=== PATIENT | female | born 1965 | race Caucasian/White ===

== ENCOUNTER 2016-09-02 10:52 | Emergency (ER) | payer BC, OTHER ==
[2016-09-02 11:37] VITALS: BP 148/71
--- NOTE | 2016-09-02 14:44 | UC ---
FLU HPI - HPI Summary HPI Summary: COUGH CHILLS SINUS PRESSURE, SINCE YESTERDAY. NO FEVER. HAS TONSILLECTOMY. - History of Current Complaint Chief Complaint: UCRespiratory Stated Complaint: COUGH SOB CHEST HEAVINESS Time Seen by Provider: 09/02/16 12:08 Hx Obtained From: Patient Hx Last Menstrual Period: 4 months ago Onset/Duration: Sudden Onset, Lasting Days, Still Present Severity Currently: Mild Severity Initially: Mild Pain Intensity: 2 Pain Scale Used: 0-10 Numeric Associated Signs & Symptoms: Positive: F/C, Myalgia, Sore Throat, Nasal Congestion Related Hx: Possible Flu/Infectious Exposure - Risk Factors Influenza Risk Factors: Negative - Allergy/Home Medications Allergies/Adverse Reactions: Allergies Allergy/AdvReac Type Severity Reaction Status Date / Time No Known Allergies Allergy Verified 11/10/14 15:44 PMH/Surg Hx/FS Hx/Imm Hx Previously Healthy: Yes Endocrine History Of: Denies: Diabetes, Thyroid Disease Cardiovascular History Of: Reports: Hypertension Denies: Cardiac Disorders Respiratory History Of: Reports: Asthma Denies: COPD GI/ History Of: Denies: Ulcer - Surgical History Surgical History: Yes Surgery Procedure, Year, and Place: tonsillectomy- 1972. arthroscopic right knee surgery - 1979 - Family History Known Family History: Positive: Respiratory Disease - ASTHMA - Social History Occupation: Employed Full-time Lives: With Family Alcohol Use: Occasionally Substance Use Type: None Smoking Status (MU): Never Smoked Tobacco - Immunization History Most Recent Pneumonia Vaccination: 07/2016 Review of Systems Constitutional: Fever, Chills, Fatigue Skin: Negative Eyes: Negative ENT: Ear Ache, Nasal Discharge Respiratory: Cough Cardiovascular: Negative Gastrointestinal: Negative Genitourinary: Negative Motor: Negative Neurovascular: Negative Musculoskeletal: Negative Neurological: Negative Psychological: Negative All Other Systems Reviewed And Are Negative: Yes Physical Exam Triage Information Reviewed: Yes Appearance: Well-Appearing, No Pain Distress, Well-Nourished Vital Signs: Initial Vital Signs Temp 98.9 F 09/02/16 11:31 Pulse 82 09/02/16 11:31 Resp 18 09/02/16 11:31 BP 148/71 09/02/16 11:31 Pulse Ox 99 09/02/16 11:31 Vital Signs Reviewed: Yes Eye Exam: Normal ENT: Positive: Normal ENT inspection, Hearing grossly normal, Pharynx normal, Nasal congestion, TM dull, TM red Dental Exam: Normal Neck exam: Normal Neck: Positive: Supple, Nontender, No Lymphadenopathy Respiratory Exam: Normal Respiratory: Positive: Chest non-tender, Lungs clear, Normal breath sounds, No respiratory distress, No accessory muscle use Cardiovascular Exam: Normal Cardiovascular: Positive: RRR, No Murmur, Pulses Normal Abdominal Exam: Normal Abdomen Description: Positive: Nontender, No Organomegaly Musculoskeletal Exam: Normal Musculoskeletal: Positive: Strength Intact, ROM Intact Neurological Exam: Normal Psychological Exam: Normal Psychological: Positive: Normal Response To Family Skin Exam: Normal Flu Course/Dx - Differential Dx/Diagnosis Differential Diagnosis/HQI/PQRI: Influenza, Upper Respiratory Infection Provider Diagnoses: INFLUENZA Discharge - Discharge Plan Condition: Stable Disposition: HOME Prescriptions: Oseltamivir CAP* [Tamiflu CAP*] 75 mg PO BID #10 cap Patient Education Materials: Influenza (ED) Forms: *Work Release Referrals: Kamari Gregory MD [Primary Care Provider] -
== END 2016-09-02 13:16 | disposition home or self-care (01) ==
LOC: UCEAST 10:52
DX: J11.1 Influenza due to unidentified influenza virus with other respiratory manifestations (principal)
CPT/HCPCS: 87502; 87651; 99212; G0463

== ENCOUNTER 2016-09-10 18:57 | Emergency (ER) | payer BC ==
[2016-09-10 19:12] VITALS: BP 149/67
--- NOTE | 2016-09-10 19:23 | UC ---
Lower Extremity/Ankle HPI - HPI Summary HPI Summary: left foot swollen and painful - History of Current Complaint Chief Complaint: UCLowerExtremity Stated Complaint: LT FOOT SWOLLEN/NUMB Time Seen by Provider: 09/10/16 19:16 Hx Obtained From: Patient Hx Last Menstrual Period: 4 months ago ?: No Onset/Duration: Sudden Onset, Lasting Days, Still Present Severity Initially: Moderate Severity Currently: Moderate Pain Intensity: 6 Pain Scale Used: 0-10 Numeric Aggravating Factor(s): Standing, Ambulation Alleviating Factor(s): Rest, Elevation, OTC Meds Able to Bear Weight: Yes - Allergies/Home Medications Allergies/Adverse Reactions: Allergies Allergy/AdvReac Type Severity Reaction Status Date / Time No Known Allergies Allergy Verified 09/10/16 19:12 PMH/Surg Hx/FS Hx/Imm Hx Previously Healthy: No Endocrine History Of: Denies: Diabetes, Thyroid Disease Cardiovascular History Of: Reports: Hypertension Denies: Cardiac Disorders Respiratory History Of: Reports: Asthma Denies: COPD GI/ History Of: Denies: Ulcer - Surgical History Surgical History: Yes Surgery Procedure, Year, and Place: tonsillectomy- 1972. arthroscopic right knee surgery - 1979. 2000 - Family History Known Family History: Positive: Respiratory Disease - ASTHMA - Social History Occupation: Employed Full-time - [employer] Therapist At [employer] Lives: With Family Alcohol Use: Occasionally Substance Use Type: None Smoking Status (MU): Never Smoked Tobacco - Immunization History Most Recent Pneumonia Vaccination: 07/2016 Review of Systems Constitutional: Negative Skin: Negative Eyes: Negative ENT: Negative Respiratory: Negative Cardiovascular: Negative Gastrointestinal: Negative Genitourinary: Negative Motor: Negative Neurovascular: Negative Musculoskeletal: Negative, Arthralgia - left foot, Edema - 1/4 inch greater around than right foot Neurological: Negative Psychological: Negative All Other Systems Reviewed And Are Negative: Yes Physical Exam Triage Information Reviewed: Yes Appearance: Well-Appearing, No Pain Distress, Well-Nourished Vital Signs: Initial Vital Signs Temp 98.2 F 09/10/16 19:08 Pulse 84 09/10/16 19:08 Resp 16 09/10/16 19:08 BP 149/67 09/10/16 19:08 Pulse Ox 97 09/10/16 19:08 Vital Signs Reviewed: Yes Eye Exam: Normal Eyes: Positive: Conjunctiva Clear ENT Exam: Normal ENT: Positive: Normal ENT inspection, Hearing grossly normal. Negative: Nasal congestion, Nasal drainage, Trismus, Muffled/hoarse voice Dental Exam: Normal Neck exam: Normal Neck: Positive: Supple, Nontender Respiratory Exam: Normal Respiratory: Positive: Chest non-tender, Lungs clear, Normal breath sounds, No respiratory distress, No accessory muscle use Cardiovascular Exam: Normal Cardiovascular: Positive: RRR, Pulses Normal, Brisk Capillary Refill Musculoskeletal Exam: Normal Musculoskeletal: Positive: Strength Intact, ROM Intact, Edema @ - left foot Neurological Exam: Normal Neurological: Positive: Alert, Muscle Tone Normal Psychological Exam: Normal Skin Exam: Normal Diagnostics - Radiology No standard instances Xray Interpretation: No Acute Changes Radiology Interpretation Completed By: Radiologist Re-Evaluation - Re-Evaluation Second Eval Change: Improved - increase comfort with cam boot Lower Extremity Course/Dx - Course Course Of Treatment: immobilize foot, rice ibuprofen rest follow with orthopedic md this week - Differential Dx/Diagnosis Differential Diagnosis/HQI/PQRI: Bursitis, Cellulitis, Contusion, Fracture ( Closed), Sprain, Strain Provider Diagnoses: Left foot pain, hypertension with diagnosis and treatment Discharge - Discharge Plan Condition: Stable Disposition: HOME Patient Education Materials: Ibuprofen (By mouth), Arthralgia (ED), RICE Therapy (ED), Arthritis (ED) Forms: *Work Release Referrals: Kamari Gregory MD [Primary Care Provider] - Shira Whitman MD [Medical Doctor] - 4 Days
--- NOTE | 2016-09-10 19:50 | RAD ---
HISTORY: Left fourth and fifth metatarsal pain and swelling COMPARISONS: None VIEWS: 3, Frontal, lateral, and oblique views of the left foot FINDINGS: BONE DENSITY: Normal. BONES: There is no displaced fracture. There are calcaneal enthesophytes. There is no appreciable erosion or periosteal reaction. JOINTS: There is mild osteoarthritis of the midfoot ALIGNMENT: There is no dislocation. SOFT TISSUES: Unremarkable. OTHER FINDINGS: None. IMPRESSION: NO ACUTE OSSEOUS INJURY. APPRECIABLE EROSION OR PERIOSTEAL REACTION. IF SYMPTOMS PERSIST, RECOMMEND REPEAT IMAGING.
== END 2016-09-10 20:25 | disposition home or self-care (01) ==
LOC: UCEAST 18:57
DX: M25.572 Pain in left ankle and joints of left foot (principal); I10 Essential (primary) hypertension; J45.909 Unspecified asthma, uncomplicated
CPT/HCPCS: 99212; G0463

== ENCOUNTER 2017-02-04 13:05 | Emergency (ER) | payer BC ==
[2017-02-04] MEDS ORDERED: Ketorolac INJ* 60 MG/2 ML VIAL IM ONE (14:55)
[2017-02-04 16:08] VITALS: BP 136/74
--- NOTE | 2017-02-04 16:19 | RAD ---
CLINICAL HISTORY: Back pain, dysuria, hematuria COMPARISON: None TECHNIQUE: Multiple contiguous axial CT scans were obtained of the abdomen and pelvis, without intravenous contrast enhancement. Coronal and sagittal multiplanar reformations are submitted for review. Oral contrast was not administered. FINDINGS: The study is limited by the lack of intravenous contrast. This limits evaluation of the solid organs and vasculature. LUNG BASES: The lung bases are clear. LIVER: The liver is normal in shape, size, contour, and attenuation. BILE DUCTS: There is no intrahepatic or extrahepatic biliary dilatation. GALLBLADDER: The gallbladder is normal, without pericholecystic inflammatory change. PANCREAS: The pancreas is normal, without mass or ductal dilatation. SPLEEN: Normal in size and appearance. UPPER GI TRACT: Evaluation of the gastrointestinal tract is limited by incomplete gastric distention. The upper GI tract is unremarkable. SMALL BOWEL AND MESENTERY: The small bowel is normal in contour, course, and caliber. There is no obstruction or dilatation. COLON: The colon is normal in contour, course, caliber. There is no pericolonic inflammatory change. There is a tubular, vermiform, hollow viscus that is blind ending, and originates from the cecum, consistent with a normal appendix. There is no periappendiceal inflammatory change. ADRENALS: Normal bilaterally. KIDNEYS: There are punctate renal calyceal stones bilaterally measuring up to 0.2 cm in size. There are no appreciable ureteral stones. There is no hydronephrosis. BLADDER: The bladder is incompletely distended but is grossly normal. PELVIC ORGANS: The uterus and adnexa are grossly normal for technique. AORTA: The aorta is normal. IVC: Unremarkable LYMPH NODES: There is no lymphadenopathy by size criteria. ABDOMINAL WALL: There is no evidence for abdominal wall hernia. BONES AND SOFT TISSUES: Degenerative changes are noted OTHER: None IMPRESSION: PUNCTATE NONOBSTRUCTING RENAL CALYCEAL STONES BILATERALLY.
--- NOTE | 2017-02-12 13:46 | UC ---
Ashley Myers Edward, scribed for Kelly Seth DO on 02/04/17 at 1447 . Back Pain HPI - HPI Summary HPI Summary: 51 y/o female presents to [facility] c/o diffuse lower back pain starting three days ago. Three days ago the pt turned with her shoelace stuck in the door quickly. Later when she went to sit down in her car she felt like she "sat on a nerve." The pain started soon after these incidents. The pain is aggravated when the pt bends over and mildly aggravated when she straightens back up and sits down for too long. It is described as a spasmodic/stabbing pain rated at 4.5/10 in severity now, 7/10 this morning. Denies numbness/tingling, weakness and the pain does not radiate into her legs. Associated sx: nausea. PMHx bulging disc secondary to work-related back injury (20 years ago), HTN, asthma, plantar fasciitis. Past medications reviewed on visit. - History of Current Complaint Chief Complaint: UCBackPain Stated Complaint: BACK PAIN Time Seen by Provider: 02/04/17 14:43 Hx Obtained From: Patient Hx Last Menstrual Period: 4 months ago ?: No Onset/Duration: Lasting Days, Still Present Timing: Constant Severity Currently: Moderate Pain Intensity: 4 Pain Scale Used: 0-10 Numeric Back Pain: Is Diffuse - Lower back Character: Sharp - Stabbing and pulling, Spasmodic Aggravating: Bending - and sitting Associated Signs And Symptoms: Positive: Other - Nausea. Negative: Weakness, Numbness, Tingling - Allergies/Home Medications Allergies/Adverse Reactions: Allergies Allergy/AdvReac Type Severity Reaction Status Date / Time No Known Allergies Allergy Verified 02/04/17 13:44 Home Medications: Home Medications Folic Acid TAB* [Folvite TAB*] 02/04/17 [History] sulfaSALAzine TAB* [Azulfidine TAB*] 1,000 mg PO BID 02/04/17 [History Confirmed 02/04/17] PMH/Surg Hx/FS Hx/Imm Hx - Additional Past Medical History Additional PMH: Positive: plantar fasciitis Previously Healthy: No Cardiovascular History: Hypertension Respiratory History: Asthma - Surgical History Surgical History: Yes Surgery Procedure, Year, and Place: tonsillectomy- 1972. arthroscopic right knee surgery - 1979. 2000 - Family History Known Family History: Positive: Cardiac Disease, Hypertension, Diabetes - Social History Occupation: Employed Full-time Lives: Alone Alcohol Use: Occasionally Substance Use Type: None Smoking Status (MU): Never Smoked Tobacco - Immunization History Most Recent Pneumonia Vaccination: 07/2016 Review of Systems Constitutional: Negative Skin: Negative Eyes: Negative ENT: Negative Respiratory: Negative Cardiovascular: Negative Gastrointestinal: Nausea Genitourinary: Negative Motor: Negative Neurovascular: Negative Musculoskeletal: Myalgia - Lower back pain Neurological: Negative Psychological: Negative All Other Systems Reviewed And Are Negative: Yes Physical Exam Triage Information Reviewed: Yes Appearance: Well-Appearing, Well-Nourished, Pain Distress - Mild Vital Signs: Initial Vital Signs Temp 98.9 F 02/04/17 13:39 Pulse 90 02/04/17 13:39 Resp 16 02/04/17 13:39 BP 142/77 02/04/17 13:39 Pulse Ox 98 02/04/17 13:39 Vital Signs Reviewed: Yes Eyes: Positive: Conjunctiva Clear. Negative: Discharge ENT: Positive: Hearing grossly normal. Negative: Muffled/hoarse voice Neck exam: Normal Neck: Positive: Supple Respiratory: Positive: Lungs clear, Normal breath sounds, No respiratory distress, No accessory muscle use Cardiovascular: Positive: RRR, No Murmur Abdomen Description: Positive: Nontender, Soft. Negative: CVA Tenderness (R), CVA Tenderness (L), Distended, Guarding, McBurney's Point Tenderness Bowel Sounds: Positive: Present Musculoskeletal: Positive: Strength Intact - Strength, sensation and reflexes intact bilaterally, ROM Limited @ - ROM restricted with rotation - R greater than L and with inflection from a seated position, Other: - TTP overl bialteral SI joint and at the L5-S1 junction Neurological Exam: Normal Neurological: Positive: Muscle Tone Normal Psychological Exam: Normal Psychological: Positive: Age Appropriate Behavior Skin Exam: Normal, Other - Warm, dry, normal color Diagnostics - Radiology ABD/PEL CT Xray Interpretation: Positive (See Comments) - PUNCTATE NONOBSTRUCTING RENAL CALYCEAL STONES BILATERALLY. NO URETRAL STONES. NO HYDRONEPHROSIS. ED physician has reviewed this radiology report and agrees. Radiology Interpretation Completed By: Radiologist Back Pain Course/Dx - Course Course Of Treatment: Htn noted. Elevated bp likely d/t pt current condition - Differential Dx/Diagnosis Differential Diagnosis/HQI/PQRI: Strain, Sprain Provider Diagnoses: Low back strain, elevated bp without dx of htn Discharge - Discharge Plan Condition: Stable Disposition: HOME Prescriptions: Cyclobenzaprine TAB* [Flexeril TAB*] 10 mg PO TID PRN #30 tab PRN Reason: Pain Naproxen TAB* [Naprosyn 250 mg TAB*] 500 mg PO BID #20 tab Patient Education Materials: Low Back Strain (ED) Forms: *Work Release Referrals: Kamari Gregory MD [Primary Care Provider] - 3 Days Additional Instructions: We did a CT scan of your abdomen and pelvis to look for kidney stones since we found blood in your urine. We actually did see stones in the kidneys themselves but saw nothing in your ureters. So the stones we see do not seem to be causing your pain today. You should follow up with your PCP with regard to these stone and with regard to the blood in your urine. If your pain does not resolve over the next week or so, you may want to ask your pcp for physical therapy. YOU WOULD LIKELY BENEFIT FROM OSTEOPATHIC TREATMENT. WE RECOMMEND THAT YOU FIND AN OSTEOPATHIC PHYSICIAN IN YOUR AREA WHO FOCUSES EXCLUSIVELY ON OSTEOPATHIC MANIPULATIVE MEDICINE WITH EXPERTISE IN MYOFACIAL, LYMPHATIC, VISCERAL AND INTEROSSEOUS WORK Your blood pressure was elevated at this visit. That does not mean you have hypertension, it is probably due to your current condition. Please follow up with your primary care provider. The documentation as recorded by the Ashley krueger Edward accurately reflects the service I personally performed and the decisions made by me, Kelly Seth DO.
== END 2017-02-04 16:45 | disposition home or self-care (01) ==
LOC: UCEAST 13:05
DX: S39.012A Strain of muscle, fascia and tendon of lower back, initial encounter (principal); X50.1XXA Overexertion from prolonged static or awkward postures, initial encounter; Y93.89 Activity, other specified; Y92.9 Unspecified place or not applicable; N20.0 Calculus of kidney; R11.0 Nausea; I10 Essential (primary) hypertension; J45.909 Unspecified asthma, uncomplicated
CPT/HCPCS: 74176; 81003; 99212; G0463; J1885

== ENCOUNTER 2017-08-08 19:59 | Emergency (ER) | payer BC ==
[2017-08-08 20:24] VITALS: BP 156/85
[2017-08-08] MEDS ORDERED: Amoxicillin PO (*) 500 MG CAP PO ONE (20:55)
--- NOTE | 2017-08-08 21:00 | UC ---
Ion Myers Nikita, scribed for Renetta Arshad MD on 08/08/17 at 2057 . Respiratory Complaint HPI - HPI Summary HPI Summary: This patient is a 51 year old F presenting to [facility] with a chief complaint of sinus and chest congestion since 1 week ago. The patient rates the pain 0/10 in severity. Symptoms aggravated by nothing. Symptoms alleviated by nothing. Patient reports chest congestion and productive cough with clear sputum (since today), dry mucous membranes, post-nasal drip, nausea, vomiting, wheezing, and body aches. Patient denies SOB, fever, chills, ear pain, and vision changes. The patient has taken OTC medication without decongestant (second to BP) Pt has taken an albuterol inhaler (twice today with some relief). Pt concerned sx 7 days and "settling in chest" with sinus pressure. Patient's medications reviewed this visit. 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 Patient denies SOB, fever, chills, ear pain, and vision changes. - Allergies/Home Medications Allergies/Adverse Reactions: Allergies Allergy/AdvReac Type Severity Reaction Status Date / Time No Known Allergies Allergy Verified 08/08/17 20:24 PMH/Surg Hx/FS Hx/Imm Hx Cardiovascular History: Hypertension Respiratory History: Asthma - Surgical History Surgical History: Yes Surgery Procedure, Year, and Place: tonsillectomy- 1972. arthroscopic right knee surgery - 1979. 2000 - Family History Known Family History: Positive: Cardiac Disease, Hypertension, Diabetes, Respiratory Disease - ASTHMA - Social History Occupation: Employed Full-time - [employer] Lives: With Family Alcohol Use: Occasionally Substance Use Type: None Smoking Status (MU): Never Smoked Tobacco - Immunization History Most Recent Pneumonia Vaccination: 07/2016 Review of Systems Constitutional: Other - denies fever, chills Eyes: Other - denies vision changes ENT: Sinus Congestion, Other - dry mucous membranes, post-nasal drips, chest congestion/tightness; denies ear pain Respiratory: Other - productive cough with clear sputum, wheezing; denies SOB Gastrointestinal: Vomiting, Nausea Musculoskeletal: Other: - body aches All Other Systems Reviewed And Are Negative: Yes Physical Exam Triage Information Reviewed: Yes Appearance: Well-Appearing, No Pain Distress, Well-Nourished Vital Signs: Initial Vital Signs Temp 99.0 F 08/08/17 20:19 Pulse 85 08/08/17 20:19 Resp 16 08/08/17 20:19 BP 156/85 08/08/17 20:19 Pulse Ox 98 08/08/17 20:19 Vital Signs Reviewed: Yes Eye Exam: Normal Eyes: Positive: Conjunctiva Clear ENT: Positive: Nasal congestion, Other - right TM scant fluid left TM clear turbinates inflammed and boggy + PND uvula midline max sinuses mild tender to palp Dental Exam: Normal Neck exam: Normal Neck: Positive: Supple, Nontender, No Lymphadenopathy Respiratory Exam: Normal Respiratory: Positive: Chest non-tender, Lungs clear, Normal breath sounds, No respiratory distress, No accessory muscle use Cardiovascular Exam: Normal Cardiovascular: Positive: RRR, No Murmur, Pulses Normal Abdominal Exam: Normal Abdomen Description: Positive: Nontender, No Organomegaly, Soft Bowel Sounds: Positive: Present Musculoskeletal Exam: Normal Neurological Exam: Normal Neurological: Positive: Alert Psychological Exam: Normal Skin Exam: Normal UC Diagnostic Evaluation - Laboratory O2 Sat by Pulse Oximetry: 98 Respiratory Course/Dx - Course Course Of Treatment: Blood pressure noted - pt with dx of HTN on meds -patient informed to follow up with PCP. Pt with sinus congestion, pressure, PND and cough. pt with symptomtic x 7 days with progression. increase MDI. flonase. hydrate. secretion precaution. abx. return precaution. work note. pt comfortable and in agreement with plan - Differential Dx/Diagnosis Provider Diagnoses: sinusitis Discharge - Discharge Plan Condition: Stable Disposition: HOME Prescriptions: Amoxicillin PO (*) [Amoxicillin 875 MG (*)] 875 mg PO BID #20 tab Fluticasone NASAL SPRAY 50MCG* [Flonase NASAL SPRAY 50MCG*] 2 spray BOTH NARES DAILY #1 btl Patient Education Materials: Sinusitis (ED) Forms: *Work Release Referrals: Kamari Gregory MD [Primary Care Provider] - Additional Instructions: - Stay well hydrated. Drink plenty of non-alcoholic, non-caffinated beverages. - Alternate ibuprofen (Advil, Motrin) 600mg and Tylenol every 3 hours for pain or fever. Take with food. Do NOT take for more than 4-5 days. - These infections are spread by secretions - do NOT share eating or drinking utensils - clean items you share with other people such as cell phones, computer mouse, TV remote, computer tablets, etc. After you have taken antibiotics for 3 days, change your toothbrush and your pillowcase. - use nasal spray as prescribed - use your inhaler, 2 puffs every 4 hours, as needed for cough or wheeze - get plenty of restful sleep - humidify the air in the room where you sleep - boil water, run a hot steam shower, vaporizer, cups of water by heat register - okay to take over the counter decongestant and cough medication - contact your doctor, return here, or go to the emergency department with questions or concerns The documentation as recorded by the Ion krueger Nikita accurately reflects the service I personally performed and the decisions made by , Renetta Arshad MD.
== END 2017-08-08 21:05 | disposition home or self-care (01) ==
LOC: UCEAST 19:59
DX: J32.9 Chronic sinusitis, unspecified (principal)
CPT/HCPCS: 99212; A9270-GY; G0463

== ENCOUNTER 2017-09-05 18:06 | Emergency (ER) | payer BC ==
[2017-09-05 18:22] VITALS: BP 171/74
--- NOTE | 2017-09-05 18:40 | ED ---
Upper Extremity Pain - HPI Summary HPI Summary: 51yo F 6d post colonoscopy states that 2 days ago she developed some minor discomfort in the area of her L forearm IV insertion site (from the colonoscopy) . There was a bruise there initially, but now with soreness, minor redness and swelling. No chest pain/SOB. On PremPro for hot flashes. Non-smoker. - History of Current Complaint Chief Complaint: UCSkin Stated Complaint: ARM COMPLAINT Time Seen by Provider: 09/05/17 18:24 Hx Obtained From: Patient Hx Last Menstrual Period: 3 months ago - Allergies/Home Medications Allergies/Adverse Reactions: Allergies Allergy/AdvReac Type Severity Reaction Status Date / Time No Known Allergies Allergy Verified 09/05/17 18:22 PMH/Surg Hx/FS Hx/Imm Hx Endocrine/Hematology History: Denies: Hx Diabetes, Hx Thyroid Disease Cardiovascular History: Reports: Hx Hypertension Denies: Hx Pacemaker/ICD Respiratory History: Reports: Hx Asthma Denies: Hx Chronic Obstructive Pulmonary Disease (COPD) GI History: Denies: Hx Ulcer Sensory History: Denies: Hx Hearing Aid Psychiatric History: Denies: Hx Panic Disorder - Surgical History Surgery Procedure, Year, and Place: tonsillectomy- 1972. arthroscopic right knee surgery - 1979. 2000 Infectious Disease History: No Infectious Disease History: Denies: Hx Clostridium Difficile, Hx Hepatitis, Hx Human Immunodeficiency Virus (HIV), Hx of Known/Suspected MRSA, Hx Shingles, Hx Tuberculosis, Hx Known/ Suspected VRE, Hx Known/Suspected VRSA, History Other Infectious Disease, Traveled Outside the [place] in Last 30 Days - Family History Known Family History: Positive: Cardiac Disease, Hypertension, Diabetes, Respiratory Disease - ASTHMA - Social History Alcohol Use: Occasionally Substance Use Type: Reports: None Smoking Status (MU): Never Smoked Tobacco Review of Systems Constitutional: Negative Positive: Other - No chest pain Positive: Other - no SOB Gastrointestinal: Negative Positive: Bruising, Other - redness/swelling Neurological: Negative All Other Systems Reviewed And Are Negative: Yes Physical Exam Triage Information Reviewed: Yes Vital Signs On Initial Exam: Initial Vitals Temp Pulse Resp BP Pulse Ox 36.7 C 84 18 171/74 99 09/05/17 18:18 09/05/17 18:18 09/05/17 18:18 09/05/17 18:18 09/05/17 18:18 Vital Signs Reviewed: Yes Appearance: Positive: Well-Appearing, No Pain Distress Skin: Positive: Warm, Other - L forearm just distal to AC area ulnarly has small area of ecchymosis and proximal to that is a palpable cord about 2cm in length. Mild tenderness in the area. Minor redness and perhaps some warmth to the area. No findings proximal to the elbow. Eyes: Positive: Normal Respiratory/Lung Sounds: Positive: Clear to Auscultation, Breath Sounds Present Cardiovascular: Positive: RRR, Pulses are Symmetrical in both Upper and Lower Extremities Musculoskeletal: Positive: Other - L arm as above. No significant swelling Neurological: Positive: Normal, Sensory/Motor Intact, Alert, Oriented to Person Place, Time Psychiatric: Positive: Normal Diagnostics - Vital Signs Vital Signs Temp Pulse Resp BP Pulse Ox 09/05/17 18:18 36.7 C 84 18 171/74 99 - Laboratory Lab Statement: Any lab studies that have been ordered have been reviewed, and results considered in the medical decision making process. Course/Dx - Course Course Of Treatment: tiny cord felt. On PremPro. Non-smoker. No prox findings. Tx keflex, warm compresses. - Diagnoses Differential Diagnosis/HQI/PQRI: Positive: Other - thrombophlebitis, DVT, cellulitis, hematoma Provider Diagnoses: Superficial thrombophlebitis Discharge - Sign-Out/Discharge Documenting (check all that apply): Discharge - Discharge Plan Condition: Good Disposition: HOME Prescriptions: Cephalexin CAP* [Keflex CAP*] 500 mg PO TID #21 cap Patient Education Materials: Superficial Thrombophlebitis (ED) Referrals: Kamari Gregory MD [Primary Care Provider] - Additional Instructions: warm compresses, massage to area. Call your doctor in the morning for follow up this week. Return with increased pain, redness up arm, swelling, chest pain or shortness of breath. - Billing Disposition and Condition Condition: GOOD Disposition: HOME
== END 2017-09-05 18:50 | disposition home or self-care (01) ==
LOC: UCEAST 18:06
DX: T80.1XXA Vascular complications following infusion, transfusion and therapeutic injection, initial encounter (principal); I80.9 Phlebitis and thrombophlebitis of unspecified site
CPT/HCPCS: 99212; G0463

== ENCOUNTER 2018-01-13 10:23 | Emergency (ER) | payer BC ==
[2018-01-13 10:41] VITALS: BP 137/67
--- NOTE | 2018-01-13 10:53 | UC ---
Upper Extremity HPI - HPI Summary HPI Summary: This is pati Slade documenting for Dr. Rolando Benitez MD. Pt is a 52 y/o F who presents to [facility] c/o left shoulder and left arm numbness and pain for 2 days. Rates her pain intensity as 4/10 in severity. 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 The chest pain resolved when she stopped working. Exertion exacerbates symptoms. Notes slight nausea. Denies vomiting, dyspnea, palpitations, or dizziness. - History of Current Complaint Chief Complaint: UCChestPain Stated Complaint: SHOULDER PAIN, CHEST TIGHTNESS Time Seen by Provider: 01/13/18 10:31 Hx Obtained From: Patient Hx Last Menstrual Period: 3 months ago Onset/Duration: Lasting Days, Still Present Severity Currently: Mild Pain Intensity: 4 Pain Scale Used: 0-10 Numeric Aggravating Factor(s): Movement Associated Signs And Symptoms: Positive: Numbness/Tingling - Allergies/Home Medications Allergies/Adverse Reactions: Allergies Allergy/AdvReac Type Severity Reaction Status Date / Time No Known Allergies Allergy Verified 01/13/18 12:09 PMH/Surg Hx/FS Hx/Imm Hx Endocrine History: Diabetes - NEGATIVE, Thyroid Disease - NEGATIVE Cardiovascular History: Hypertension Respiratory History: Asthma - Surgical History Surgical History: Yes Surgery Procedure, Year, and Place: tonsillectomy- 1972. arthroscopic right knee surgery - 1979. 2000. colonscopy with polyp removal 2017 - Family History Known Family History: Positive: Cardiac Disease, Hypertension, Diabetes, Respiratory Disease - ASTHMA - Social History Alcohol Use: Rare Substance Use Type: None Smoking Status (MU): Never Smoked Tobacco - Immunization History Most Recent Pneumonia Vaccination: 07/2016 Review of Systems Respiratory: Shortness Of Breath - NEGATIVE Cardiovascular: Palpitations - NEGATIVE, Chest Pain - resolved Gastrointestinal: Vomiting - NEGATIVE, Nausea Musculoskeletal: Other: - back pain, left shoulder and left arm numbness and pain Neurological: Other - NEGATIVE: dizziness All Other Systems Reviewed And Are Negative: Yes Physical Exam - Summary Physical Exam Summary: VITAL SIGNS: Reviewed. GENERAL: Patient is a well-developed and nourished obese female who is lying comfortable in the stretcher. Patient is not in any acute respiratory distress. HEAD AND FACE: Normocephalic EYES: PERRLA, EOMI x 2. EARS: Hearing grossly intact. MOUTH: Oropharynx within normal limits. NECK: Supple, trachea is midline, no adenopathy, no JVD, no carotid bruit. CHEST: Symmetric, no tenderness at palpation LUNGS: Clear to auscultation bilaterally. No wheezing or crackles. CVS: Regular rate and rhythm, S1 and S2 present, no murmurs or gallops appreciated. ABDOMEN: Soft, non-tender. Bowel sounds are normal. No abdominal abnormal pulsations. EXTREMITIES: Full ROM in all major joints, no edema, no cyanosis or clubbing. NEURO: Alert and oriented x 3. No acute neurological deficits. Speech is normal and follows commands. SKIN: Dry and warm Triage Information Reviewed: Yes Vital Signs: Initial Vital Signs Temp 97.9 F 01/13/18 10:36 Pulse 84 01/13/18 10:36 Resp 18 01/13/18 10:36 BP 137/67 01/13/18 10:36 Pulse Ox 97 01/13/18 10:36 Vital Signs Reviewed: Yes Diagnostics - EKG EKG Comments: Taken at 10:23. No ST elevation and normal axis Cardiac Rate: NL - 89 bpm Cardiac Rhythm: Sinus: Normal Upper Extremity Course/Dx - Course Course Of Treatment: This patient is a 52-year-old female who presents to the emergency department with chief complaint of having left shoulder pain, upper back pain, and chest pressure. Patient reports that the symptoms appear when she was doing some exertion. 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 Patient had some nausea without vomiting. No shortness of breath palpitations. Patient has past medical history significant for hypertension, dyslipidemia morbid obesity. Therefore because of the comorbidities I recommend for the patient to go to the ER to rule out acute coronary syndrome. The patient declined ambulance. Patient understands risks, benefits of driving herself to the emergency department. She understands and agrees and will drive herself declined ambulance transfer. The patient's hemoglobin after stable alert and oriented 3. - Differential Dx/Diagnosis Differential Diagnosis/HQI/PQRI: Bursitis, Contusion, Fracture (Closed), Strain , Sprain Provider Diagnoses: Chest pain Discharge - Sign-Out/Discharge Documenting (check all that apply): Patient Departure - Discharge Plan Condition: Stable Disposition: HOME Patient Education Materials: Chest Pain (ED) Referrals: Kamari Gregory MD [Primary Care Provider] - Additional Instructions: Patient will be discharged to the ED for further assessment. Patient declined ambulance - Billing Disposition and Condition Condition: STABLE Disposition: Home
== END 2018-01-13 10:55 | disposition home or self-care (01) ==
LOC: UCEAST 10:23
DX: R07.89 Other chest pain (principal); R11.0 Nausea; R20.0 Anesthesia of skin; R20.2 Paresthesia of skin; M25.512 Pain in left shoulder; M54.6 Pain in thoracic spine
CPT/HCPCS: 99212; G0463

== ENCOUNTER 2018-01-13 11:51 | Emergency (ER) | payer BC ==
[2018-01-13 12:26] LABS: ABS Basophils 0.1 10^3/ul (0-0.2); ABS Eosinophils 0.1 10^3/ul (0-0.6); ABS Lymphocytes 1.8 10^3/ul (1.0-4.8); ABS Monocytes 0.4 10^3/ul (0-0.8); ABS Neutrophils 5.1 10^3/ul (1.5-7.7); ABS Nucleated RBC 0 10^3/ul; Hematocrit 35 % (35-47); Hemoglobin 11.9 g/dl (12.0-16.0); Lymphocyte % 24.3 % (25-47); Mean Corpuscular HGB Conc 34 g/dl (31-36); Mean Corpuscular Hemoglobin 30 pg (27-31); Mean Corpuscular Volume 89 fL (80-97); Mean Platelet Volume 8.4 um3 (7.4-10.4); Nucleated Red Blood Cells % 0; Platelet Count 244 10^3/ul (150-450); Red Blood Count 3.94 10^6/ul (4.00-5.40); Red Cell Distribution Width 13 % (10.5-15); White Blood Count 7.4 10^3/ul (3.5-10.8)
[2018-01-13 12:45] LABS: EGFR Non-African American 145.7 (>60)
--- NOTE | 2018-01-13 12:52 | RAD ---
INDICATION: Chest pain. COMPARISON: There are no prior studies available for comparison. TECHNIQUE: A portable view of the chest was obtained. FINDINGS: Cardiac and mediastinal contours appear to be within normal limits. The lungs are clear. No pleural effusion is seen. IMPRESSION: NO EVIDENCE FOR ACUTE DISEASE.
[2018-01-13] MEDS ORDERED: Ketorolac INJ* 30 MG/ML 1 ML VIAL IV PUSH ONE (13:52)
[2018-01-13 16:02] VITALS: BP 150/75
--- NOTE | 2018-01-13 18:45 | ED ---
Back Pain - HPI Summary HPI Summary: Patient is a 52-year-old female who presents emergency department for a radiation of chest and back pain. Patient states she's been having lower and upper back pain over the last several days. She does not recall any specific injury. Pain is worse with lifting and movement. Patient states when she was at work today, works at a [employer], she developed chest burning and felt nauseous. Patient initially presented to urgent care where she was referred to the ER for further evaluation. States since being in the ER she has 0 chest pain. She denies numbness, tingling or weakness in extremities. Denies bowel or bladder incontinence or retention. She still complains reproducible neck pain. She denies recent illness, cough, abdominal pain, vomiting, diarrhea, urinary symptoms. Past medical history of high cholesterol, obesity, notes grandmother had heart attack in the 50s. Symptoms are moderate in severity. Movement makes symptoms worse. Rest makes symptoms better. - History of Current Complaint Chief Complaint: EDBackInjuryPain Stated Complaint: CHEST TIGHTNESS/SHOULDER PAIN Time Seen by Provider: 01/13/18 12:06 Hx Obtained From: Patient Hx Last Menstrual Period: 3 months ago Pain Intensity: 2 Pain Scale Used: 0-10 Numeric - Allergies/Home Medications Allergies/Adverse Reactions: Allergies Allergy/AdvReac Type Severity Reaction Status Date / Time No Known Allergies Allergy Verified 01/13/18 12:09 Home Medications: Home Medications Estrogens/Medroxypr 0.625(NF) [Prempro 0.625/2.5(NF)] 1 tab PO DAILY 01/13/18 [ History Confirmed 01/13/18] Losartan TAB* [Cozaar TAB*] 50 mg PO DAILY 01/13/18 [History Confirmed 01/13/18] PMH/Surg Hx/FS Hx/Imm Hx Previously Healthy: Yes Endocrine/Hematology History: Denies: Hx Diabetes, Hx Thyroid Disease Cardiovascular History: Reports: Hx Hypertension Denies: Hx Pacemaker/ICD Respiratory History: Reports: Hx Asthma Denies: Hx Chronic Obstructive Pulmonary Disease (COPD) GI History: Denies: Hx Ulcer Sensory History: Denies: Hx Hearing Aid Psychiatric History: Denies: Hx Panic Disorder - Surgical History Surgery Procedure, Year, and Place: tonsillectomy- 1972. arthroscopic right knee surgery - 1979. 2000. colonscopy with polyp removal 2018 - Immunization History Immunizations Up to Date: Yes Infectious Disease History: No Infectious Disease History: Denies: Hx Clostridium Difficile, Hx Hepatitis, Hx Human Immunodeficiency Virus (HIV), Hx of Known/Suspected MRSA, Hx Shingles, Hx Tuberculosis, Hx Known/ Suspected VRE, Hx Known/Suspected VRSA, History Other Infectious Disease, Traveled Outside the [place] in Last 30 Days - Family History Known Family History: Positive: Cardiac Disease, Hypertension, Diabetes, Respiratory Disease - ASTHMA - Social History Occupation: Employed Full-time Lives: With Family Alcohol Use: Rare Substance Use Type: Reports: None Smoking Status (MU): Never Smoked Tobacco Review of Systems Constitutional: Negative Eyes: Negative ENT: Negative Positive: Chest Pain Respiratory: Negative Gastrointestinal: Negative Genitourinary: Negative Positive: Other - back pain back pain Neurological: Negative Negative: Weakness, Paresthesia, Numbness All Other Systems Reviewed And Are Negative: Yes Physical Exam Vital Signs On Initial Exam: Initial Vitals Temp Pulse Resp BP Pulse Ox 97.1 F 81 20 161/75 97 01/13/18 11:53 01/13/18 11:53 01/13/18 11:53 01/13/18 11:53 01/13/18 11:53 Diagnostics - Vital Signs Vital Signs Temp Pulse Resp BP Pulse Ox 01/13/18 16:01 97.9 F 76 18 150/75 98 01/13/18 15:00 18 01/13/18 14:00 18 01/13/18 13:39 145/81 01/13/18 13:00 29 01/13/18 12:38 21 151/76 01/13/18 12:08 23 144/76 01/13/18 11:53 97.1 F 81 20 161/75 97 - Laboratory Lab Results: Lab Results 01/13/18 01/13/18 01/13/18 Range/Units 12:17 12:17 12:17 WBC 7.4 (3.5-10.8) 10^3/ul RBC 3.94 L (4.00-5.40) 10^6/ul Hgb 11.9 L (12.0-16.0) g/dl Hct 35 (35-47) % MCV 89 (80-97) fL MCH 30 (27-31) pg MCHC 34 (31-36) g/dl RDW 13 (10.5-15) % Plt Count 244 (150-450) 10^3/ul MPV 8.4 (7.4-10.4) um3 Neut % (Auto) 68.8 (38-83) % Lymph % (Auto) 24.3 L (25-47) % [place] % (Auto) 4.9 (0-7) % Eos % (Auto) 1.0 (0-6) % Baso % (Auto) 1.0 (0-2) % Absolute Neuts (auto) 5.1 (1.5-7.7) 10^3/ul Absolute Lymphs (auto) 1.8 (1.0-4.8) 10^3/ul Absolute Monos (auto) 0.4 (0-0.8) 10^3/ul Absolute Eos (auto) 0.1 (0-0.6) 10^3/ul Absolute Basos (auto) 0.1 (0-0.2) 10^3/ul Absolute Nucleated RBC 0 10^3/ul Nucleated RBC % 0 APTT 29.0 (26.0-36.3) seconds Sodium 140 (135-145) mmol/L Potassium 3.5 (3.5-5.0) mmol/L Chloride 105 (101-111) mmol/L Carbon Dioxide 28 (22-32) mmol/L Anion Gap 7 (2-11) mmol/L BUN 11 (6-24) mg/dL Creatinine 0.45 L (0.51-0.95) mg/dL Est GFR ( Amer) 176.4 (>60) Est GFR (Non-Af Amer) 145.7 (>60) BUN/Creatinine Ratio 24.4 H (8-20) Glucose 124 H (70-100) mg/dL Calcium 9.1 (8.6-10.3) mg/dL Total Bilirubin 0.30 (0.2-1.0) mg/dL AST 11 L (13-39) U/L ALT 13 (7-52) U/L Alkaline Phosphatase 63 (34-104) U/L Troponin I 0.00 (<0.04) ng/mL Total Protein 7.0 (6.4-8.9) g/dL Albumin 4.1 (3.2-5.2) g/dL Globulin 2.9 (2-4) g/dL Albumin/Globulin Ratio 1.4 (1-3) 08//18 Range/Units 15:03 WBC (3.5-10.8) 10^3/ul RBC (4.00-5.40) 10^6/ul Hgb (12.0-16.0) g/dl Hct (35-47) % MCV (80-97) fL MCH (27-31) pg MCHC (31-36) g/dl RDW (10.5-15) % Plt Count (150-450) 10^3/ul MPV (7.4-10.4) um3 Neut % (Auto) (38-83) % Lymph % (Auto) (25-47) % [place] % (Auto) (0-7) % Eos % (Auto) (0-6) % Baso % (Auto) (0-2) % Absolute Neuts (auto) (1.5-7.7) 10^3/ul Absolute Lymphs (auto) (1.0-4.8) 10^3/ul Absolute Monos (auto) (0-0.8) 10^3/ul Absolute Eos (auto) (0-0.6) 10^3/ul Absolute Basos (auto) (0-0.2) 10^3/ul Absolute Nucleated RBC 10^3/ul Nucleated RBC % APTT (26.0-36.3) seconds Sodium (135-145) mmol/L Potassium (3.5-5.0) mmol/L Chloride (101-111) mmol/L Carbon Dioxide (22-32) mmol/L Anion Gap (2-11) mmol/L BUN (6-24) mg/dL Creatinine (0.51-0.95) mg/dL Est GFR ( Amer) (>60) Est GFR (Non-Af Amer) (>60) BUN/Creatinine Ratio (8-20) Glucose (70-100) mg/dL Calcium (8.6-10.3) mg/dL Total Bilirubin (0.2-1.0) mg/dL AST (13-39) U/L ALT (7-52) U/L Alkaline Phosphatase (34-104) U/L Troponin I 0.00 (<0.04) ng/mL Total Protein (6.4-8.9) g/dL Albumin (3.2-5.2) g/dL Globulin (2-4) g/dL Albumin/Globulin Ratio (1-3) Result Diagrams: 01/13/18 12:17 01/13/18 12:17 Lab Statement: Any lab studies that have been ordered have been reviewed, and results considered in the medical decision making process. Back Pain Course/Dx - Course Course Of Treatment: She presenting to the ER for repeat his low back pain and an episode of chest pain. She is currently chest pain-free. She is afebrile stable vital signs. Cardiac workup ordered. Blood work is unremarkable. Chest xray negative for acute findings, per radiology. EKG done at 80bpm, normal axis, appropriate intervals, no ST elevation or depression. Case discussed with Dr. Pollock who recommends repeat troponin in 3 hours and dc home if negative. Repeat trop. is negative. Pt. was given a dose of toradol and pain improved. Suspect pain is muscular in nature. Results were discussed with patient. She is comfortable getting discharged home. Advised to call her family doctor Tuesday for close follow-up appointment and further evaluation such as a stress test. Anti-inflammatories for pain as directed. Apply warm compresses to back. To return to the ER if symptoms change or worsen. Patient understands and agrees with plan. - Diagnoses Provider Diagnoses: Atypical chest pain, Back strain Discharge - Sign-Out/Discharge Documenting (check all that apply): Patient Departure - Discharge Plan Condition: Good Disposition: HOME Patient Education Materials: Chest Pain (ED), Thoracic Back Strain (ED) Referrals: Kamari Gregory MD [Primary Care Provider] - Additional Instructions: Call PCP on Tuesday to schedule a follow up appointment for further evaluation Apply warm compresses to back NSAIDS for pain as directed Return to ER if symptoms change or worsen - Billing Disposition and Condition Condition: GOOD Disposition: Home
== END 2018-01-13 16:01 | disposition home or self-care (01) ==
LOC: ED 11:51
DX: R07.89 Other chest pain (principal); S39.012A Strain of muscle, fascia and tendon of lower back, initial encounter; X58.XXXA Exposure to other specified factors, initial encounter; Y92.9 Unspecified place or not applicable; E66.9 Obesity, unspecified; E78.00 Pure hypercholesterolemia, unspecified; Z82.49 Family history of ischemic heart disease and other diseases of the circulatory system
CPT/HCPCS: 36415; 71045; 80053; 84484; 85025; 85730; 93005; 96374; 99282; J1885

== ENCOUNTER 2018-06-13 14:40 | Emergency (ER) | payer BC ==
[2018-06-13 15:00] VITALS: BP 154/72
--- NOTE | 2018-06-13 15:23 | UC ---
Respiratory Complaint HPI - HPI Summary HPI Summary: Started w/ sore throat 4 days ago and 2 days ago developed sinus pressure, cough and feeling winded. did get flu shot this year - History of Current Complaint Chief Complaint: UCRespiratory Stated Complaint: URI Time Seen by Provider: 06/13/18 15:23 Hx Obtained From: Patient Hx Last Menstrual Period: 3 months ago Pain Intensity: 0 Aggravating Factors: Deep Breaths Alleviating Factors: OTC Meds Associated Signs And Symptoms: Positive: Fever, Chills, URI, Nasal Congestion. Negative: Dyspnea, Wheezing - Allergies/Home Medications Allergies/Adverse Reactions: Allergies Allergy/AdvReac Type Severity Reaction Status Date / Time No Known Allergies Allergy Verified 06/13/18 14:53 PMH/Surg Hx/FS Hx/Imm Hx Previously Healthy: Yes Cardiovascular History: Hypertension - Surgical History Surgical History: Yes Surgery Procedure, Year, and Place: tonsillectomy- 1972. arthroscopic right knee surgery - 1979. 2000. colonscopy with polyp removal 2017 - Family History Known Family History: Positive: Cardiac Disease, Hypertension, Diabetes, Respiratory Disease - ASTHMA - Social History Alcohol Use: Rare Substance Use Type: None Smoking Status (MU): Never Smoked Tobacco - Immunization History Most Recent Influenza Vaccination: 2018 Most Recent Tetanus Shot: UTD Most Recent Pneumonia Vaccination: 07/2016 Review of Systems All Other Systems Reviewed And Are Negative: Yes Constitutional: Positive: Fever, Chills Skin: Positive: Negative ENT: Positive: Sore Throat, Nasal Discharge, Sinus Congestion, Sinus Pain/ Tenderness. Negative: Dental Pain, Ear Ache Respiratory: Positive: Cough, Other - denies pnd. Negative: Shortness Of Breath Cardiovascular: Positive: Negative Gastrointestinal: Positive: Negative Neurological: Positive: Headache Physical Exam Triage Information Reviewed: Yes Appearance: Well-Appearing, Obese Vital Signs: Initial Vital Signs Temp 99.1 F 06/13/18 14:54 Pulse 91 06/13/18 14:54 Resp 18 06/13/18 14:54 BP 154/72 06/13/18 14:54 Pulse Ox 97 06/13/18 14:54 Vital Signs Reviewed: Yes Eyes: Positive: Conjunctiva Clear ENT: Positive: Pharyngeal erythema, Nasal congestion, TMs normal, Uvula midline. Negative: Dental tenderness, Sinus tenderness Neck: Positive: Supple, Nontender, No Lymphadenopathy Respiratory Exam: Normal Cardiovascular Exam: Normal Neurological: Positive: Alert Skin Exam: Normal Diagnostic Evaluation - Laboratory O2 Sat by Pulse Oximetry: 97 Respiratory Course/Dx - Course Course Of Treatment: Cough for 4 days,w/ sinus pressure, afebrile. Pt did get the flu shot this year. Exam did not show abnormal lung sounds. good vitals aside from elevated blood pressure. Viral etiology and given cough suppresant. - Differential Dx/Diagnosis Differential Diagnosis/HQI/PQRI: Asthma, Influenza, Sinusitis Provider Diagnosis: Flu-like symptoms, HTN (hypertension) Discharge - Sign-Out/Discharge Documenting (check all that apply): Patient Departure All imaging exams completed and their final reports reviewed: No Studies - Discharge Plan Condition: Good Disposition: HOME Prescriptions: Acetaminoph/Cod 120/12 mg LIQ* [Tylenol/Codeine 120/12 LIQ*] 10 ml PO Q4H PRN # 300 ml MDD 60ml/day PRN Reason: Cough Patient Education Materials: Acute Bronchitis (ED) Referrals: Kamari Gregory MD [Primary Care Provider] - Additional Instructions: If not improving please follow up with your pcp. - Billing Disposition and Condition Condition: GOOD Disposition: Home
== END 2018-06-13 16:17 | disposition home or self-care (01) ==
LOC: UCEAST 14:40
DX: J02.9 Acute pharyngitis, unspecified (principal); R05 Cough; J34.89 Other specified disorders of nose and nasal sinuses; R09.89 Other specified symptoms and signs involving the circulatory and respiratory systems; I10 Essential (primary) hypertension
CPT/HCPCS: 99212; G0463